=== PATIENT | female | born 2005 | race Caucasian/White ===

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

== ENCOUNTER 2024-09-23 10:45 | Emergency (ER) | payer OTHER ==
[~2024-09-23] VITALS: Ht 152.4 cm; Wt 85.1 kg
[~2024-09-23 10:45] MED LIST: OSEL75CA PO; PREVTAB2 PO
[2024-09-23 11:35] LABS: BASO # 0.0 10^3/uL (0.0-0.2); BASO % 0.2 % (0.0-1.0); EOS # 0.0 10^3/uL (0.0-0.5); EOS % 0.5 % (0.0-3.0); LYMPH # 2.2 10^3/uL (1.5-5.0); LYMPH % 25.6 % (24.0-44.0); MONO # 0.4 10^3/uL (0.0-0.8); MONO % 4.6 % (2.0-8.0); NEUTROPHILS # 5.8 10^3/uL (1.5-8.5); NEUTROPHILS % 68.7 % (36.0-66.0); PLATELET COUNT, AUTOMATED 294 10^3/uL (150-450)
[2024-09-23 11:41] LABS: KETONE, URINE AUTO RFX NEGATIVE (NEGATIVE); LEUKOCYTE ESTERASE UR AUTO RFX NEGATIVE (NEGATIVE); NITRITE, URINE AUTO RFX NEGATIVE (NEGATIVE); RBC, URINE AUTO RFX 1 /HPF (0-3); SQUAM EPITHELIAL CELL UR AURFX 1 /HPF (0-6); WBC, URINE AUTO RFX 0 /HPF (0-3)
[2024-09-23 12:02] LABS: CALCIUM LEVEL 9.7 MG/DL (8.5-10.1); CARBON DIOXIDE LEVEL 26 MMOL/L (20-31); CHLORIDE LEVEL 101 MMOL/L (98-107); CREATININE FOR GFR 0.61 MG/DL (0.55-1.30); GLOMERULAR FILTRATION RATE > 90.0 (>60); POTASSIUM SERUM 4.0 MMOL/L (3.5-5.1); SODIUM LEVEL 138 MMOL/L (136-145)
[2024-09-23 12:19] LABS: HCG, SERUM QUANTITATIVE 43668.7 MIU/ML (<4.2)
[2024-09-23 12:44] VITALS: BP 106/65; TEMP 99.3; O2SAT 99
== END 2024-09-23 12:50 | disposition home or self-care (01) ==
LOC: M ED 10:45
DX: O20.0 Threatened abortion (principal); Z3A.01 Less than 8 weeks gestation of pregnancy

== ENCOUNTER → 2024-09-25 | Outpatient (CLI) | payer OTHER | LOC: M PLALAB 09:08 | PROVIDERS: ATTEND Emergency Medicine | DX: O20.0 Threatened abortion (principal); Z3A.00 Weeks of gestation of pregnancy not specified ==

== ENCOUNTER → 2024-09-27 | Outpatient (CLI) | payer OTHER | LOC: M PLALAB 09:01 | PROVIDERS: ATTEND Advanced Practice Midwife | DX: O20.9 Hemorrhage in early pregnancy, unspecified (principal); Z3A.00 Weeks of gestation of pregnancy not specified ==

== ENCOUNTER 2024-10-12 08:54 | Day surgery (SDC) | payer OTHER ==
[~2024-10-12] VITALS: Ht 154.9 cm; Wt 85.3 kg
[2024-10-12] MEDS: LR 1,000 ML IV SCH (09:30)
[2024-10-12] MEDS ORDERED: LIDOCAINE 1% SDV 30 ML VIAL As Ordered ONE (09:30)
[2024-10-12] MEDS ORDERED: HYDROMORPHONE HCL 0.5 MG/0.5 ML SYRINGE IV PRN (10:00)
[2024-10-12] MEDS ORDERED: MIDAZOLAM INJ 2 MG/2 ML VIAL As Ordered ONE (10:15)
[2024-10-12 10:35] LABS: PLATELET COUNT, AUTOMATED 262 10^3/uL (150-450)
[2024-10-12] MEDS: ACETAMINOPHEN 500 MG TAB PO ONE (11:30)
[2024-10-12] MEDS: DOXYCYCLINE HYCLATE 100 MG TABLET PO ONE (11:38)
[2024-10-12] MEDS: ONDANSETRON 4MG 2ML VIAL IV PRN (11:42)
[2024-10-12 12:00] VITALS: BP 114/72; TEMP 97.4; O2SAT 99
== END 2024-10-12 12:10 | disposition home or self-care (01) ==
LOC: M SDC 08:54
PROVIDERS: ATTEND Specialist
DX: O02.1 Missed abortion (principal)
CPT/HCPCS: 36415; 59820; 85027; 88305; J2250; J2405; J3010

== ENCOUNTER 2024-10-14 15:52 | Emergency (ER) | payer OTHER ==
[~2024-10-14] VITALS: Ht 167.6 cm; Wt 85.4 kg
[2024-10-14 19:18] LABS: KETONE, URINE AUTO RFX NEGATIVE (NEGATIVE); MUCUS, URINE RFX SMALL (NEGATIVE); NITRITE, URINE AUTO RFX NEGATIVE (NEGATIVE); RBC, URINE AUTO RFX 13 /HPF (0-3); SQUAM EPITHELIAL CELL UR AURFX 32 /HPF (0-6)
[2024-10-14 19:27] LABS: LEUKOCYTE ESTERASE UR AUTO RFX 1+ (NEGATIVE); WBC, URINE AUTO RFX 20 /HPF (0-3)
[2024-10-14 19:38] LABS: BASO # 0.0 10^3/uL (0.0-0.2); BASO % 0.4 % (0.0-1.0); EOS # 0.0 10^3/uL (0.0-0.5); EOS % 0.4 % (0.0-3.0); LYMPH # 1.9 10^3/uL (1.5-5.0); LYMPH % 17.3 % (24.0-44.0); MONO # 0.6 10^3/uL (0.0-0.8); MONO % 5.2 % (2.0-8.0); NEUTROPHILS # 8.4 10^3/uL (1.5-8.5); NEUTROPHILS % 76.4 % (36.0-66.0); PLATELET COUNT, AUTOMATED 270 10^3/uL (150-450)
[2024-10-14] MEDS: NS (Normal Saline) 0.9% 1,000 ML IV ONE (19:50)
[2024-10-14] MEDS ORDERED: IBUPROFEN 600 MG TAB PO ONE (19:55)
[2024-10-14 20:08] LABS: CALCIUM LEVEL 8.8 MG/DL (8.5-10.1); CARBON DIOXIDE LEVEL 26 MMOL/L (20-31); CHLORIDE LEVEL 101 MMOL/L (98-107); CREATININE FOR GFR 0.66 MG/DL (0.55-1.30); GLOMERULAR FILTRATION RATE > 90.0 (>60); POTASSIUM SERUM 4.1 MMOL/L (3.5-5.1); SODIUM LEVEL 140 MMOL/L (136-145)
[2024-10-14] MEDS: ACETAMINOPHEN *IV* 1,000 MG in IV 1 EA IV ONE (20:40)
[2024-10-14 20:42] LABS: HCG, SERUM QUANTITATIVE 2218.8 MIU/ML (<4.2)
[2024-10-14 22:17] VITALS: BP 112/58; TEMP 97.7; O2SAT 97
== END 2024-10-14 23:01 | disposition home or self-care (01) ==
LOC: M ED 15:52
DX: N99.820 Postprocedural hemorrhage of a genitourinary system organ or structure following a genitourinary system procedure (principal)
CPT/HCPCS: 76830; 76856; 80048; 81001; 84702; 85025; 87040; 87086; 87210; 87486; 87581; 87633; 87798; 93976; 94760; 96374; 99284; J0131